=== PATIENT | female | born 1995 | race Caucasian/White ===

== ENCOUNTER 2021-09-19 13:11 | Observation (INO) ==
[2021-09-19 14:00] LABS: Bilirubin,Urine Negative (Negative); Blood,Urine Negative (Negative); Clarity,Urine Turbid (Clear); Color,Urine Light-Yellow (Yellow); Glucose,Urine (UA) Normal (Normal); Ketones,Urine 80 mg/dL (Negative); Leukocyte Esterase,Urine Negative (Negative); Nitrite,Urine Negative (Negative); PH,Urine 6.5 pH Units (5.0-8.0); Protein,Urine Trace mg/dL (Neg-Trace); Urobilinogen,Urine Normal (Normal)
[2021-09-19 14:10] LABS: Bacteria,Urine Few per hpf (None-Few); Mucus,Urine Few per lpf (None-Few); RBC,Urine 0-3 per hpf (0-3); Squamous Epithelial Cell,Urine Moderate per hpf (None-Few); WBC,Urine 0-3 per hpf (0-3)
== END 2021-09-19 16:12 | disposition home or self-care (01) ==
LOC: 1NENULAB
PROVIDERS: ADMIT Advanced Practice Midwife; ATTEND Advanced Practice Midwife

== ENCOUNTER 2021-09-22 22:21 | Inpatient (IN) ==
[2021-09-22 22:21] LABS: Basophils % 0.3 %; Eosinophils # 0.1 K/mcL (0.0-0.6); Eosinophils % 0.4 %; Hematocrit 33.2 % (35.3-44.9); Hemoglobin 10.3 g/dL (11.5-15.4); Immature Granulocytes % 1.6 % (0-4); Lymphocytes # 3.1 K/mcL (0.6-4.6); Lymphocytes % 23.4 %; Mean Corpuscular Hemoglobin 23.9 pg (28.0-33.3); Mean Platelet Volume 10.9 fL (9.4-12.4); Monocytes % 7.8 %; Neutrophils # 8.9 K/mcL (1.6-8.9); Platelet Count 379 K/mcL (140-400); Red Blood Count 4.31 M/mcL (3.82-4.97); Red Cell Distribution Width 15.4 % (11.5-14.5); Segmented Neutrophils % 66.5 %; White Blood Count 13.4 K/mcL (4.3-11.1)
[~2021-09-22 22:21] MED LIST: *HR* Nalbuphine 10 MG/ML AMPUL IV PRN; Azithromycin 500 MG in 0.9 % Sodium Chloride 250 ML IVPB PRN; Famotidine 20 MG/2 ML VIAL IVP PRN; Lidocaine 1% 20 ML MDV INFILT PRN; Metoclopramide 10 MG/2 ML VIAL IVP PRN; Naloxone 0.4 MG/ML INJ IVP PRN; Ondansetron 4 MG/2 ML VIAL IVP PRN; Ringers Solution, Lactated 1,000 ML IVC SCH
[2021-09-22] MEDS ORDERED: EPHEDrine 50 MG/ML VIAL IVP PRN (22:30)
[2021-09-22] MEDS ORDERED: Epidural Premix (fent/bupiv) 110 ML EP SCH (22:30)
[2021-09-22 22:40] LABS: Amphetamine Screen,Urine Negative ng/mL (Cutoff=1000); Barbiturate Screen,Urine Negative ng/mL (Cutoff=200); Benzodiazepines Screen,Urine Negative ng/mL (Cutoff=200); Cannabinoid Screen,Urine Negative ng/mL (Cutoff = 50); Cocaine Screen,Urine Negative ng/mL (Cutoff= 300); Opiate Screen,Urine Negative ng/mL (Cutoff=300); Phencyclidine Screen,Urine Negative ng/mL (Cutoff=25)
[2021-09-22] MEDS ORDERED: Oxytocin 20 units/ LR 1000 mL 20 UNIT/1,000 ML BAG IVC ONE (23:26)
[2021-09-22] MEDS ORDERED: Famotidine 20 MG/2 ML VIAL IVP ONE (23:54)
[2021-09-23] MEDS ORDERED: Rho Immune Globulin 1,500 UNIT SYRINGE IM PRN (04:13)
[2021-09-23] MEDS ORDERED: Oxytocin 20 units/ LR 1000 mL 20 UNIT/1,000 ML BAG IVC SCH (04:13)
[2021-09-23] MEDS ORDERED: Oxytocin 20 units/ LR 1000 mL 20 UNIT/1,000 ML BAG IVC ONE (04:13)
[2021-09-23] MEDS ORDERED: Lanolin 7 G OINT...G. TP PRN (04:13)
[2021-09-23] MEDS ORDERED: Ondansetron ODT 4 MG TAB.RAPDIS SL PRN (04:13)
[2021-09-23] MEDS ORDERED: Measles/Mumps/Rubella Vacc 0.5 ML VIAL SQ PRN (04:13)
[2021-09-23] MEDS: Ibuprofen 600 MG TABLET PO SCH ×3 (05:01→21:00)
[2021-09-23] MEDS: Acetaminophen 325 MG TABLET PO SCH ×3 (05:02→21:00)
[2021-09-23] MEDS: Benzocaine/Menthol 56 GM AEROSOL SPRAY TP PRN (05:02)
[2021-09-23] MEDS: Prenatal Vit/FA 1 EACH TABLET PO SCH (08:34)
[2021-09-23] MEDS ORDERED: NON-FORMULARY MEDICATION 1 EACH EACH (Ferrous Sulfate 324 MG) PO SCH (09:00)
[2021-09-23 20:16] VITALS: O2SAT 100
[2021-09-24] MEDS: Acetaminophen 325 MG TABLET PO SCH ×2 (03:05→09:02)
[2021-09-24] MEDS: Ibuprofen 600 MG TABLET PO SCH ×2 (03:05→09:02)
[2021-09-24 03:32] LABS: Basophils % 0.4 %; Eosinophils # 0.1 K/mcL (0.0-0.6); Hematocrit 29.9 % (35.3-44.9); Hemoglobin 9.2 g/dL (11.5-15.4); Immature Granulocytes % 1.4 % (0-4); Lymphocytes # 3.6 K/mcL (0.6-4.6); Lymphocytes % 32.9 %; Mean Corpuscular HGB Conc 30.8 g/dL (31.6-35.5); Mean Corpuscular Volume 78.1 fL (83.0-100.0); Mean Platelet Volume 11.2 fL (9.4-12.4); Monocytes # 0.9 K/mcL (0.0-1.3); Monocytes % 8.2 %; Neutrophils # 6.2 K/mcL (1.6-8.9); Platelet Count 307 K/mcL (140-400); Red Blood Count 3.83 M/mcL (3.82-4.97); Red Cell Distribution Width 15.7 % (11.5-14.5); Segmented Neutrophils % 56.1 %
[2021-09-24 07:30] VITALS: BP 127/61; PULSE 65; TEMP 98
[2021-09-24] MEDS: Benzocaine/Menthol 56 GM AEROSOL SPRAY TP PRN (09:01)
[2021-09-24] MEDS: Prenatal Vit/FA 1 EACH TABLET PO SCH (09:02)
== END 2021-09-24 12:59 | disposition home or self-care (01) | DRG 807 ==
LOC: 1NENULAB → 1NENUOBS 09-23 04:11
PROVIDERS: ADMIT Student in an Organized Health Care Education/Training Program; ATTEND Student in an Organized Health Care Education/Training Program